=== PATIENT | female | born 1980 | race Caucasian/White ===

== ENCOUNTER 2016-09-25 15:37 | Emergency (ER) | payer OTHER ==
[~2016-09-25] VITALS: Ht 170.2 cm; Wt 59.4 kg
[2016-09-25] MEDS ORDERED: ASPI-84 PO (15:55)
[2016-09-25] MEDS: PROMETHAZINE HCL 25 MG/1 ML VIAL IM ONE (16:57)
[2016-09-25] MEDS: HYDROMORPHONE 1 MG/1 ML DISP.SYRIN IM ONE (16:57)
--- NOTE | 2016-09-25 17:00 | NUR ---
Patient discharged to home in stable conditon. Written and verbal after care instructions given. Patient verbalizes understanding of instructions. Stressed follow up.
[2016-09-25] MEDS ORDERED: HYDROMORPHONE 2 MG/1 ML DISP.SYRIN ONE (17:04)
[2016-09-25] MEDS ORDERED: PROMETHAZINE HCL 25 MG/1 ML VIAL ONE (17:04)
== END 2016-09-25 17:00 | disposition home or self-care (01) ==
LOC: ER 15:41
DX: S16.1XXA Strain of muscle, fascia and tendon at neck level, initial encounter (principal); Z88.0 Allergy status to penicillin; Z88.6 Allergy status to analgesic agent; V89.2XXA Person injured in unspecified motor-vehicle accident, traffic, initial encounter; Y93.89 Activity, other specified; Y99.8 Other external cause status; Y92.89 Other specified places as the place of occurrence of the external cause
CPT/HCPCS: A4663; J1170; J2550

== ENCOUNTER → 2016-10-06 | Emergency (ER) | payer OTHER ==
[~2016-10-06] VITALS: Ht 170.2 cm; Wt 61.2 kg
[~2016-10-06] MED LIST: ASPI-84 PO
--- NOTE | 2016-10-06 11:54 | NUR ---
DR LEMONS AT THE BEDSIDE.
--- NOTE | 2016-10-06 12:00 | NUR ---
Patient discharged to home in stable conditon. Written and verbal after care instructions given. Patient verbalizes understanding of instructions.
[2016-10-06 12:01] VITALS: BP 138/85
== END | disposition home or self-care (01) ==
LOC: ER 11:34
DX: Z76.0 Encounter for issue of repeat prescription (principal); M54.9 Dorsalgia, unspecified; M54.2 Cervicalgia; Z79.82 Long term (current) use of aspirin; Z88.0 Allergy status to penicillin; Z88.6 Allergy status to analgesic agent
CPT/HCPCS: A4663

== ENCOUNTER 2016-12-24 14:47 | Emergency (ER) | payer OTHER ==
[~2016-12-24] VITALS: Ht 170.2 cm; Wt 62.1 kg
[2016-12-24] MEDS ORDERED: NAPR500T PO (14:59)
--- NOTE | 2016-12-24 15:03 | NUR ---
ER MD at the bedside for eval and exam.
[2016-12-24 15:15] VITALS: BP 124/69
--- NOTE | 2016-12-24 15:15 | NUR ---
Patient discharged to home in stable conditon. Written and verbal after care instructions given. Patient verbalizes understanding of instructions.
== END 2016-12-24 15:16 | disposition home or self-care (01) ==
LOC: ER 14:47
DX: S16.1XXA Strain of muscle, fascia and tendon at neck level, initial encounter (principal); G35 Multiple sclerosis; Z79.82 Long term (current) use of aspirin; Z88.0 Allergy status to penicillin; X50.9XXA Other and unspecified overexertion or strenuous movements or postures, initial encounter; Y93.89 Activity, other specified; Y92.9 Unspecified place or not applicable; Y99.9 Unspecified external cause status
CPT/HCPCS: A4663

== ENCOUNTER 2021-03-16 18:10 | Emergency (ER) | payer OTHER ==
[~2021-03-16] VITALS: Ht 172.7 cm; Wt 62.6 kg
[~2021-03-16 18:10] MED LIST changes: -ASPI-84 PO; +NAPR-1164 PO
[2021-03-16 19:05] LABS: *BILIRUBIN,URIN NEGATIVE (NEGATIVE); *BLOOD, URINE NEGATIVE (NEGATIVE); *CLARITY,URINE CLEAR (CLEAR); *COLOR,URINE YELLOW (YELLOW); *KETONES,URINE TRACE (NEGATIVE); *UROBILINOGEN,URINE 0.2 E.U./dl (NORMAL); LEUKOCYTE ESTERASE ,URINE NEGATIVE (NEGATIVE); NITRITE, URINE NEGATIVE (NEGATIVE); PH,URINE 5.5 (5.0-8.0); UGLUCOSE NEGATIVE (NEGATIVE)
[2021-03-16 19:06] LABS: HEMATOCRIT 41.9 % (31.2-41.9); MEAN CORPUSCULAR HEMOGLOBIN 31.1 uug (24.7-32.8); MEAN CORPUSCULAR VOLUME 90.7 fL (75.5-95.3); PLATELET COUNT (AUTO) 194 K/uL (179-408)
[2021-03-16 19:12] LABS: CREATININE 0.9 mg/dL (0.6-1.3); POTASSIUM 3.4 mmol/L (3.5-5.1)
[2021-03-16 19:12] LABS: BACTERIA,URINE FEW /HPF (NONE SEEN); RBC,URINE 0-3 /HPF (0-3); SQUAMOUS EPITHELIAL CELL,UR MODERATE /HPF (NONE SEEN)
[2021-03-16 19:18] LABS: BILIRUBIN,DIRECT 0.1 mg/dL (0.0-0.2); BILIRUBIN,TOTAL 0.4 mg/dL (0.2-1.0); TOTAL PROTEIN, SERUM 6.6 g/dL (6.4-8.2)
--- NOTE | 2021-03-16 19:47 | NUR ---
Patient discharged to home in stable condition. Written and verbal after care instructions given. Patient verbalizes understanding of instructions. Stressed follow up or return to ER for worsening s/s. Patient out of ER with steady gait, no acute signs of disress, VSS, all belongings taken, provided copies of lab results.
[2021-03-16 19:49] VITALS: BP 114/71
== END 2021-03-16 19:50 | disposition home or self-care (01) ==
LOC: ER 18:14
DX: K92.89 Other specified diseases of the digestive system (principal); E87.6 Hypokalemia; E55.9 Vitamin D deficiency, unspecified; D72.821 Monocytosis (symptomatic); Z88.6 Allergy status to analgesic agent; Z88.0 Allergy status to penicillin; G35 Multiple sclerosis
CPT/HCPCS: 36415; 83605; 84443; 85025; A4663

== ENCOUNTER 2021-03-17 15:59 | Emergency (ER) | payer OTHER ==
[~2021-03-17] VITALS: Ht 165.1 cm; Wt 63.5 kg
--- NOTE | 2021-03-17 16:24 | NUR ---
Patient discharged to home in stable condition. Written and verbal after care instructions given. Patient verbalizes understanding of instructions. Stressed follow up or return to ER for worsening s/s.
[2021-03-17] MEDS ORDERED: KETOROLAC TROMETHAMINE 15 MG INJ ONE (16:28)
[2021-03-17] MEDS ORDERED: KETOROLAC TROMETHAMINE 15 MG INJ IM ONE (16:30)
== END 2021-03-17 16:26 | disposition home or self-care (01) ==
LOC: ER 16:00
DX: F41.9 Anxiety disorder, unspecified (principal); E87.6 Hypokalemia; G89.29 Other chronic pain; M54.50 Low back pain, unspecified; G35 Multiple sclerosis; Z88.6 Allergy status to analgesic agent; Z88.0 Allergy status to penicillin; D72.821 Monocytosis (symptomatic)
CPT/HCPCS: 96372; 99283; J1885; A4663

== ENCOUNTER 2021-04-11 00:45 | Emergency (ER) | payer OTHER ==
[~2021-04-11] VITALS: Ht 167.6 cm; Wt 63.5 kg
--- NOTE | 2021-04-11 00:50 | NUR ---
PT AMBULATED TO ER C/O ABDOMINAL BLOATING AND MAKING "GURGLING SOUNDS" X4 DAYS. DENIES CP/PRESSURE.
--- NOTE | 2021-04-11 00:57 | NUR ---
DR. LIMON AT [facility] IN PROGRESS.
--- NOTE | 2021-04-11 01:25 | NUR ---
LAB AT BEDSIDE.
[2021-04-11] MEDS ORDERED: KETOROLAC TROMETHAMINE 30 MG INJ ONE (01:30)
[2021-04-11] MEDS ORDERED: KETOROLAC TROMETHAMINE 30 MG INJ IM ONE (01:30)
[2021-04-11 02:05] LABS: HEMATOCRIT 47.6 % (31.2-41.9); MEAN CORPUSCULAR HEMOGLOBIN 31.2 uug (24.7-32.8); MEAN CORPUSCULAR VOLUME 90.1 fL (75.5-95.3); PLATELET COUNT (AUTO) 203 K/uL (179-408)
[2021-04-11 02:12] LABS: BILIRUBIN,DIRECT 0.1 mg/dL (0.0-0.2); BILIRUBIN,TOTAL 0.3 mg/dL (0.2-1.0); CREATININE 0.9 mg/dL (0.6-1.3); POTASSIUM 4.2 mmol/L (3.5-5.1); TOTAL PROTEIN, SERUM 8.4 g/dL (6.4-8.2)
--- NOTE | 2021-04-11 03:20 | NUR ---
Patient is resting comfortably in bed with eyes closed. Breathing even and unlabored.
--- NOTE | 2021-04-11 03:46 | NUR ---
Patient discharged to home in stable condition. Written and verbal after care instructions given. Patient verbalizes understanding of instructions. Stressed follow up or return to ER for worsening s/s. Steady gait, denies any pain/discomfort. No n/v/d. Denies any EDMONDS or dizziness.
[2021-04-11 03:47] VITALS: BP 126/73
== END 2021-04-11 03:48 | disposition home or self-care (01) ==
LOC: ER 00:50
DX: R10.84 Generalized abdominal pain (principal); Z86.16 Personal history of COVID-19; Z88.6 Allergy status to analgesic agent; Z88.0 Allergy status to penicillin; R19.7 Diarrhea, unspecified
CPT/HCPCS: 36415; 83690; 85025; A4663; J1885

== ENCOUNTER 2021-09-02 03:12 | Emergency (ER) | payer OTHER ==
[~2021-09-02] VITALS: Ht 170.2 cm; Wt 61.2 kg
--- NOTE | 2021-09-02 04:45 | NUR ---
DR. LIMON AT BEDSIDE, MSE IN PROGRESS.
[2021-09-02] MEDS ORDERED: CHLO473M5 PO (05:30)
--- NOTE | 2021-09-02 05:36 | NUR ---
Patient discharged to home in stable condition. Written and verbal after care instructions given. Patient verbalizes understanding of instructions. Stressed follow up or return to ER for worsening s/s. No SOB or labored breathing. Denies pain/discomfort upon discharge.
[2021-09-02 05:41] VITALS: BP 124/70
== END 2021-09-02 08:01 | disposition home or self-care (01) ==
LOC: ER 07:45
DX: J06.9 Acute upper respiratory infection, unspecified (principal); Z20.822 Contact with and (suspected) exposure to COVID-19; Z88.6 Allergy status to analgesic agent; Z88.0 Allergy status to penicillin; G35 Multiple sclerosis
CPT/HCPCS: 36415; 99283; C9803; U0003; A4663

== ENCOUNTER 2022-01-25 14:56 | Emergency (ER) | payer OTHER ==
[~2022-01-25] VITALS: Ht 170.2 cm; Wt 62.6 kg
[~2022-01-25 14:56] MED LIST changes: +CHLO473M5 PO
--- NOTE | 2022-01-25 15:38 | NUR ---
MD at bedside for evaluation
[2022-01-25] MEDS ORDERED: TETRACAINE HCL 0.5% OPHT DROP 2 ML BOTTLE OP ONE (15:45)
[2022-01-25] MEDS ORDERED: FLUORESCEIN SODIUM 1 MG STRIP OP ONE (15:45)
[2022-01-25] MEDS ORDERED: FLUORESCEIN SODIUM 1 MG STRIP ONE (15:48)
[2022-01-25] MEDS ORDERED: TETRACAINE HCL 0.5% OPHT DROP 2 ML BOTTLE ONE (15:49)
[2022-01-25] MEDS ORDERED: KETO5DRO83 EACHEYE (16:09)
[2022-01-25 16:26] VITALS: BP 121/80
== END 2022-01-25 16:28 | disposition home or self-care (01) ==
LOC: ER 14:56
DX: H10.9 Unspecified conjunctivitis (principal); H57.13 Ocular pain, bilateral; G35 Multiple sclerosis; Z88.5 Allergy status to narcotic agent; Z88.0 Allergy status to penicillin
CPT/HCPCS: A4663

== ENCOUNTER 2022-03-12 21:40 | Emergency (ER) | payer OTHER ==
[~2022-03-12] VITALS: Ht 170.2 cm; Wt 62.6 kg
[~2022-03-12 21:40] MED LIST changes: +KETO5DRO83 EACHEYE
--- NOTE | 2022-03-13 01:46 | NUR ---
Dr. Powers at bedside, MSE in progress
[2022-03-13] MEDS ORDERED: KETOROLAC TROMETHAMINE 60 MG INJ IM ONE ×2 (02:00→02:12)
[2022-03-13] MEDS ORDERED: KETO10TA2 PO (02:04)
[2022-03-13] MEDS ORDERED: METH4TAB3 PO (02:04)
[2022-03-13 02:19] VITALS: BP 118/80
== END 2022-03-13 02:20 | disposition home or self-care (01) ==
LOC: ER 21:43
DX: M51.17 Intervertebral disc disorders with radiculopathy, lumbosacral region (principal); D69.6 Thrombocytopenia, unspecified; Z88.6 Allergy status to analgesic agent; Z88.0 Allergy status to penicillin; G35 Multiple sclerosis
CPT/HCPCS: 99283; 96372; J1885; A4663